=== PATIENT | female | born 1985 | race Caucasian/White ===

== ENCOUNTER 2016-10-06 14:32 | Emergency (ER) | payer MEDICAID ==
[2016-10-06 15:36] VITALS: TEMP 98.2; BMI 30.1
[2016-10-06] MEDS ORDERED: IBUPROFEN 800 MG TAB PO ONE (15:43)
--- NOTE | 2016-10-06 15:43 | EDPRACDOC ---
- General Information Chief Complaint: Upper Extremity Injury Stated Complaint: PAIN LT FOREARM NO INJURY Time Seen by Provider: 10/06/16 15:30 Information Source: Patient Mode of Arrival: Car Home Medications: Home Medications Alprazolam [Xanax] 0.5 mg PO DAILY 09/02/16 Budesonide [Pulmicort Flexhaler] 180 mcg ORAL INH BID 10/06/16 Escitalopram Oxalate [Lexapro] 10 mg PO DAILY 10/06/16 Hydrocodone Bit/Acetaminophen [Hydrocodon-Acetaminophen 5-325] 1 tab PO Q6H PRN #10 tab 10/06/16 Ketoprofen 75 mg PO TID #15 capsule 10/06/16 Allergies/Adverse Reactions: Allergies Allergy/AdvReac Type Severity Reaction Status Date / Time No Known Allergies Allergy Verified 10/06/16 15:36 - History of Present Illness Onset: 3-4 days HPI: PT STATES SHE FELL 2 WEEKS AGO ON THE ICE LANDED ON THE LEFT SIDE STATES HAS BEEN HAVING LT WRIST PAIN THAT RADIATES UP HER FOREARM. NO OBVIOUS DEFORMITY OR SWELLING AT THIS TIME. Location: Reports: Dorsal, Volar, Medial, Lateral Dominant Side: Reports: Left Mechanism: Reports: Blunt Trauma Circumstances: Reports: Fall Pain Severity: Reports: Mild Associated Signs and Symptoms: Reports: None ED Past Medical History - History Reviewed Yes Nurses notes reviewed and agree except as marked Travel Outside of [place] in the Last 3 Months?: No - Patient Medical History Neurological History: Reports: Epilepsy ( CHILD) Respiratory History: Reports: Asthma GI/ History: Denies: Urinary Tract Infection Psychological History: Denies: Depression Systemic History: Reports: Anemia. Denies: Cancer, Lupus Surgical History: Reports: Cholecystectomy - Family Medical History Reports: Diabetes (MGM, PGM). Denies: Hypertension, Cancer, Stroke, Cardiac Disorders - Social Medical History Smoking Status: Never smoker ETOH: None Substance Abuse: None Lives With: Other Lives In: Home EDM Review of Systems - Review of Systems ROS Negative Except as Marked: Yes All systems reviewed and were negative except as marked Constitutional: No Symptoms Reported. negative: Fever, Chills, Weakness, Fatigue, Loss of Appetite Eyes: No Symptoms Reported. negative: Redness, Blurred Vision, Double Vision, Discharge, Pain, Light Sensitive, Photophobia Ears: No Symptoms Reported. negative: Pain, Hearing Loss, Drainage, Ear Pulling Throat: No Symptoms Reported. negative: Pain, Swelling Nose: No Symptoms Reported. negative: Congestion, Bleeding, Discharge, Injection, Swelling, Deformity, Ecchymosis, Tender, Abrasion, Laceration Mouth: No Symptoms Reported. negative: Pain, Drooling Respiratory: No Symptoms Reported. negative: Cough, Brassy Cough, Barky Cough, Shortness of Breath, Wheezing, Hemoptysis Cardiovascular: No Symptoms Reported. negative: Chest Pain, Palpitations, Syncope, Edema, Orthopnea, PND, Skin Mottling, Cyanosis Gastrointestinal: No Symptoms Reported. negative: Pain, Constipation, Nausea, Vomiting, Diarrhea, Melena, Formula Intolerance Genitourinary: No Symptoms Reported. negative: Dysuria, Hematuria, Frequency, Discharge, Bleeding, Testicular Pain, Neurological: No Symptoms Reported. negative: Headache, Dizziness, Seizure, Numbness, Weakness, Speech Difficulty, Gait Difficulty Musculoskeletal: Wrist (LT). negative: Arm, Ankle, Back, Chestwall, Elbow, Forearm, Femur, Foot, Hand, Hip, Knee, Leg, Neck, Pelvis, Ribs, Shoulder Integumentary: No Symptoms Reported. negative: Itching, Rash, Bruising, Wound Allergic/Immunologic: No Symptoms Reported. negative: Hives, Itching Hematologic: No Symptoms Reported. negative: Lymphadenopathy, Easy Bruising, Easy Bleeding Endocrine: No Symptoms Reported. negative: Weight Gain, Weight Loss Psychiatric: No Symptoms Reported. negative: Anxiety, Depression, Hallucinations, Insomnia, Suicidal - Physical Exam Constitutional: No apparent distress, Alert (Awake) Oriented to: Time, Person, Place Last recorded Vital Signs: Last Vital Signs Temp 98.2 F 10/06/16 15:33 Pulse 70 10/06/16 15:33 Resp 18 10/06/16 15:33 BP 124/71 10/06/16 15:33 Pulse Ox 100 10/06/16 15:33 Oxygen Pulse Oxygen Saturation 100 O2 Device Room Air Oxygen Flow Rate Fraction of Inspired Oxygen ( FIO2) - HEENT Head: Normal ( normocephalic) Eye Exam: Normal (PERRL, EOMI, Sclera white) Oropharynx: Normal (Pharynx:Moist without exudate,Gums-no swelling) Tympanic Membrane: Normal ENT EAC: Normal TMJ: Normal Nose: No Symptoms Reported (septum midline) Neck: Normal (FROM, trachea at midline) - Respiratory/Cardiovascular Respiratory: Normal - CTA (BBS clear to auscultation without adventitious sounds ) Cardiovascular: Normal (RRR without murmur, gallop or rub) - GI Auscultation: Normal (NABS) Palpation: Normal (Soft,No rebound or guarding, non distended) Tenderness: Non tender Wells's Sign: Negative - Musculoskeletal Back: Normal (Non-Tender) Extremities: Normal (Normal tone, Pulses 2+ No cyanosis or edema, FROM) - Integumentary Skin: Normal, Warm, Dry Lymphatics: Normal (no adenopathy) - Neurologic Memory Impaired: Normal Motor Function: Normal (Normal tone, Pulses 2+ No cyanosis or edema, FROM) Cranial Nerve: Normal (CN II-X11 intact sensation, strength 5/5) Cerebellar: Normal Mood Description: Normal Perception: Normal ED Wrist Problem Exam Wrist Symptoms: Mild Tenderness, Other (FULL ROM AND NVI LEFT WRIST) Hand Symptoms: Normal Forearm Symptoms: Normal Distal Function/Circulation: Normal - Integumentary Skin: Normal Lymphatics: Normal ED Procedures - Splinting WRIST Location: LT Pre-Made Type: velcro Pre-Proc Neuro Vasc Exam: normal Post-Proc Neuro Vasc Exam: normal ED Wrist Problem MDM - Differential Diagnosis Differential Diagnosis: Carpal Tunnel Syndrome, Contusion, Fracture-Radius/Ulna , Sprain - Diagnostic Imaging WRIST Image interpreted by: Radiologist Diagnostic Imaging Comments: IMPRESSION: Negative Decision Time to Discharge: 17:01 - Departure Disposition: Home Condition: Stable Final Diagnosis: Strain of left wrist Qualifiers: Encounter type: initial encounter Qualified Code(s): S66.912A - Strain of unspecified muscle, fascia and tendon at wrist and hand level, left hand, initial encounter Instructions: RICE: Routine Care for Injuries, Wrist Sprain (ED) Education/Counseling Given To: Patient Education/Counseling Given Regarding: Diagnosis, Treatment, Prognosis, Follow Up Referrals: Mary Lai NP [Primary Care Provider] - One Week Kalpesh Ge DO [Staff Physician] - One Week Prescriptions: Hydrocodone Bit/Acetaminophen [Hydrocodon-Acetaminophen 5-325] 1 tab PO Q6H PRN #10 tab PRN Reason: Pain Ketoprofen 75 mg PO TID #15 capsule Additional Instructions: RICE FOR SWELLING. RETURN FOR WORSE OR DIFFERENT SYMPTOMS.
--- NOTE | 2016-10-06 16:21 | DIRPT ---
CLINICAL DATA: Fell 2 weeks ago pain forearm wrist left EXAM: LEFT WRIST - COMPLETE 3+ VIEW COMPARISON: None. FINDINGS: There is no evidence of fracture or dislocation. There is no evidence of arthropathy or other focal bone abnormality. Soft tissues are unremarkable. IMPRESSION: Negative. Electronically Signed By: Mars Harrison M.D. On: 10/06/2016 16:19
[2016-10-06 17:15] VITALS: BP 129/76; PULSE 71
== END 2016-10-06 17:11 | disposition home or self-care (01) ==
LOC: EDMC 14:32
DX: S66.912A Strain of unspecified muscle, fascia and tendon at wrist and hand level, left hand, initial encounter (principal); W00.0XXA Fall on same level due to ice and snow, initial encounter; Y93.9 Activity, unspecified
CPT/HCPCS: 29125; 73110; 99282; J3490